=== PATIENT | female | born 1965 | race Caucasian/White ===

== ENCOUNTER 2016-10-27 18:52 | Emergency (ER) | payer OTHER ==
[2016-10-27] MEDS ORDERED: Morphine 4 MG/ML Syringe IVPUSH ONE (19:05)
[2016-10-27] MEDS ORDERED: Ketorolac 30 MG/ML SDV IVPUSH ONE (19:06)
[2016-10-27] MEDS ORDERED: Sodium Chloride 0.9% 1,000 ML IV SCH (19:15)
--- NOTE | 2016-10-27 19:20 | EDM.PDOC ---
ED HPI GENERAL MEDICAL PROBLEM - General Chief Complaint: Chest Pain Stated Complaint: CHEST PAIN Time Seen by Provider: 10/27/16 19:00 Source of Information: Reports: Patient, Old Records History Limitations: Reports: No Limitations - History of Present Illness INITIAL COMMENTS - FREE TEXT/NARRATIVE: 51 yo female here with pleuritic left sided chest pain that began while doing crunches at [facility]. Has no hx of coronary dz. Does have a hx of a 4.3 cm thoracic ascending aortic aneurysm as a result of a congenital bicuspid aortic valve. Has never had pain like this before. No recent calf pain, cough or fever. Had some pain to the left shoulder transiently. Had also some numbness down the left arm. No nausea, diaphoresis, or SOB. Onset: Today Onset Date: 10/27/16 Onset Time: 18:25 Duration: Minutes: Location: Reports: Chest Quality: Reports: Sharp, Stabbing Severity: Moderate (6/10) Improves with: Reports: Rest, Other (shallow breathing) Worsens with: Reports: Breathing (joshua deep breathing.) Context: Reports: Other (thoracic ascending aortic aneurysm) Associated Symptoms: Reports: Chest Pain. Denies: Diaphoresis, Fever/Chills, Nausea/Vomiting, Shortness of Breath Treatments GARBAGE PICK UP MAN: Reports: Other (see below) (None) Left Chest Pain Score (Numeric/FACES): 8 - Related Data Allergies Allergy/AdvReac Type Severity Reaction Status Date / Time No Known Allergies Allergy Verified 10/27/16 19:15 Home Meds: Home Meds Calcium Carbonate/Vitamin D3 [Calcium 600 + Vit D 400] 1 each PO DAILY 02/15/13 [History] Cholecalciferol (Vitamin D3) [Vitamin D3] 2,000 unit PO DAILY 02/15/13 [History] Gluc Brock Dipo Ch/Efra Brock/C/Attila [Glucosamine Chondroitin Caplet] 1 each PO BID [History] Krill Oil 500 mg PO BID 02/15/13 [History] Lysine [l-Lysine] 500 mg PO DAILY 02/15/13 [History] Multivitamin [Multi Vitamin Daily] 1 each PO DAILY 02/15/13 [History] Ranitidine HCl [Ranitidine] 150 mg PO BID 02/15/13 [History] Vitamin B Complex 1 each PO DAILY 02/15/13 [History] Metoprolol Succinate [Toprol XL] 0.5 tab PO BID 10/30/15 [History] Ubidecarenone [Coq10] 1 tab PO ASDIRECTED 10/30/15 [History] Past Medical History Cardiovascular History: Reports: Other (See Below) Other Cardiovascular History: States she has an aneurysm on ascending aorta, 4.3 cm. Also states she has a bicuspid valve rather a tricuspid valve. States her high cholesterol has improved with her recent weight loss. Gastrointestinal History: Reports: Hiatal Hernia HOME SPECIALIST History: Reports: Social & Family History - Tobacco Use Smoking Status *Q: Never Smoker ED ROS GENERAL - Review of Systems Review Of Systems: See Below Constitutional: Reports: No Symptoms HEENT: Reports: No Symptoms Respiratory: Reports: Shortness of Breath, Pleuritic Chest Pain. Denies: Wheezing, Cough, Sputum, Hemoptysis Cardiovascular: Reports: Chest Pain. Denies: Dyspnea on Exertion, Edema, Lightheadedness, Palpitations GI/Abdominal: Reports: No Symptoms : Reports: No Symptoms Musculoskeletal: Reports: No Symptoms Skin: Reports: No Symptoms Neurological: Reports: Numbness (mild left arm, improving.) Psychiatric: Reports: Anxiety ED EXAM, GENERAL - Physical Exam Exam: See Below Exam Limited By: No Limitations General Appearance: Alert, WD/WN, No Apparent Distress, Anxious Eye Exam: Bilateral Eye: Normal Inspection, PERRL Ears: Normal External Exam, Normal Canal, Hearing Grossly Normal, Normal TMs Ear Exam: Bilateral Ear: Auricle Normal, Canal Normal Nose: Normal Inspection, Normal Mucosa, No Blood Throat/Mouth: Normal Inspection, Normal Lips, Normal Teeth, Normal Gums, Normal Oropharynx, Normal Voice, No Airway Compromise Head: Atraumatic, Normocephalic Neck: Normal Inspection Respiratory/Chest: No Respiratory Distress, Lungs Clear, Normal Breath Sounds, No Accessory Muscle Use, Chest Non-Tender Cardiovascular: Regular Rate, Rhythm, No Edema. No: Bradycardia, Tachycardia GI/Abdominal: Normal Bowel Sounds, Soft, Non-Tender, No Organomegaly, No Distention Back Exam: Normal Inspection. No: CVA Tenderness (R), CVA Tenderness (L) Extremities: Normal Inspection, Normal Range of Motion, Non-Tender, No Pedal Edema Neurological: Alert, Oriented, CN II-XII Intact, Normal Cognition, Normal Gait, No Motor/Sensory Deficits Psychiatric: Normal Affect, Normal Mood Skin Exam: Warm, Dry, Intact, Normal Color, No Rash Lymphatic: No Adenopathy EKG INTERPRETATION EKG Date: 10/27/16 Time: 19:00 Rhythm: NSR Rate (Beats/Min): 78 [place]: Normal P-Wave: Present QRS: Normal ST-T: Normal QT: Normal Comparison: No Change Course - Vital Signs Text/Narrative:: NS IV @ 100 ml/h, Toradol 30 mg IV, [place] 2 po, ASA 324 mg po-improved, not gone CXR-negative, no sign of enlarging aneurysm. Last Recorded V/S: Last Vital Signs Temp 36.8 C 10/27/16 19:39 Pulse 60 10/27/16 20:46 Resp 15 10/27/16 20:46 BP 107/81 10/27/16 20:46 Pulse Ox 99 10/27/16 20:46 - Orders/Labs/Meds Orders: Active Orders 24 hr Category Date Time Status EKG Documentation Completion [RC] ASDIRECTED Care 10/27/16 18:53 Active Chest 2V [CR] Stat Exams 10/27/16 19:07 Ordered Sodium Chloride 0.9% [Normal Saline] 1,000 ml Med 10/27/16 19:15 Active IV ASDIRECTED EKG 12 Lead [EK] Routine Ther 10/27/16 18:53 Ordered Medication Orders Sodium Chloride (Normal Saline) 1,000 mls @ 100 mls/hr IV ASDIRECTED BILL Last Admin: 10/27/16 19:29 Dose: 100 mls/hr Labs: Laboratory Tests 10/27/16 10/27/16 10/27/16 Range/Units 19:10 19:10 19:10 WBC 8.5 (4.5-12.0) X10-3/uL RBC 4.87 (3.23-5.20) x10(6)uL Hgb 15.1 (11.5-15.5) g/dL Hct 43.8 (30.0-51.3) % MCV 90.0 (80-96) fL MCH 31.0 (27.7-33.6) pg MCHC 34.5 (32.2-35.4) g/dL RDW 11.9 (11.5-15.5) % Plt Count 198 (125-369) X10(3)uL D-Dimer, Quantitative 101 (100-400) ng/mL Sodium 139 (135-145) mmol/L Potassium 3.6 (3.5-5.3) mmol/L Chloride 106 (100-110) mmol/L Carbon Dioxide 24 (23-29) mmol/L BUN 13 (5-20) mg/dL Creatinine 0.8 (0.6-1.3) mg/dL Est Cr Clr Drug Dosing TNP Estimated GFR (MDRD) > 60 (>60) BUN/Creatinine Ratio 16.3 (9-20) Glucose 120 H (80-116) mg/dL Calcium 9.6 (8.6-10.2) mg/dL Troponin I (0.02-0.06) NG/ML 10/27/16 Range/Units 19:10 WBC (4.5-12.0) X10-3/uL RBC (3.23-5.20) x10(6)uL Hgb (11.5-15.5) g/dL Hct (30.0-51.3) % MCV (80-96) fL MCH (27.7-33.6) pg MCHC (32.2-35.4) g/dL RDW (11.5-15.5) % Plt Count (125-369) X10(3)uL D-Dimer, Quantitative (100-400) ng/mL Sodium (135-145) mmol/L Potassium (3.5-5.3) mmol/L Chloride (100-110) mmol/L Carbon Dioxide (23-29) mmol/L BUN (5-20) mg/dL Creatinine (0.6-1.3) mg/dL Est Cr Clr Drug Dosing Estimated GFR (MDRD) (>60) BUN/Creatinine Ratio (9-20) Glucose (80-116) mg/dL Calcium (8.6-10.2) mg/dL Troponin I < 0.01 L (0.02-0.06) NG/ML Meds: Medications Generic Name Dose Route Start Last Admin Trade Name Freq PRN Reason Stop Dose Admin Sodium Chloride 1,000 mls @ 100 mls/hr 10/27/16 19:15 10/27/16 19:29 Normal Saline IV 100 mls/hr ASDIRECTED BILL Administration Discontinued Medications Generic Name Dose Route Start Last Admin Trade Name Freq PRN Reason Stop Dose Admin Hydrocodone Bitart/Acetaminophen 2 tab 10/27/16 20:26 10/27/16 20:34 [place] 325-5 Mg PO 10/27/16 20:27 2 tab ONETIME ONE Administration Aspirin 324 mg 10/27/16 20:52 10/27/16 21:00 Aspirin PO 10/27/16 20:53 Not Given ONETIME ONE Aspirin 324 mg 10/27/16 20:58 10/27/16 21:00 Aspirin PO 10/27/16 20:59 324 mg ONETIME ONE Administration Ketorolac Tromethamine 30 mg 10/27/16 19:06 10/27/16 19:16 Toradol IVPUSH 10/27/16 19:07 30 mg ONETIME ONE Administration Morphine Sulfate 4 mg 10/27/16 19:05 10/27/16 20:02 Morphine IVPUSH 10/27/16 19:06 4 mg ONETIME ONE Administration Departure - Departure Time of Disposition: 21:25 Disposition: Home, Self-Care 01 Condition: Good Clinical Impression: Pleurisy - My Orders Last 24 Hours: My Active Orders 10/27/16 18:53 EKG Documentation Completion [RC] ASDIRECTED EKG 12 Lead [EK] Routine 10/27/16 19:07 Chest 2V [CR] Stat 10/27/16 19:15 Sodium Chloride 0.9% [Normal Saline] 1,000 ml IV ASDIRECTED - Assessment/Plan Last 24 Hours: My Active Orders 10/27/16 18:53 EKG Documentation Completion [RC] ASDIRECTED EKG 12 Lead [EK] Routine 10/27/16 19:07 Chest 2V [CR] Stat 10/27/16 19:15 Sodium Chloride 0.9% [Normal Saline] 1,000 ml IV ASDIRECTED
[2016-10-27] MEDS ORDERED: Acetaminophen/HYDROcodone 325-5 MG Tab PO ONE ×2 (20:26→21:19)
[2016-10-27] MEDS ORDERED: Aspirin 81 MG Tab.Chew PO ONE (20:52)
[2016-10-27] MEDS: Aspirin 81 MG Tab.Chew PO ONE ×2 (20:58→21:00)
[2016-10-27 21:35] VITALS: BP 115/63
--- NOTE | 2016-10-28 09:26 | CR ---
INDICATION: Chest pain. CHEST, PA AND LATERAL VIEWS: FINDINGS: There is an earlier chest x-ray of 02/25/2013. I see no interval change. The lungs and pleural space are clear. The cardiac and mediastinal contours are stable in configuration. There is no CHF. The patient is of larger body habitus. There is mild scoliosis deformity of thoracic spine curved convex to the right. There is some generalized degenerative change throughout the thoracic spine. There are mild compression deformities in mid thoracic spine, though these look chronic. IMPRESSION: No acute abnormalities shown. MTDD
== END 2016-10-27 21:30 | disposition home or self-care (01) ==
LOC: FB.ED 18:52
DX: R09.1 Pleurisy (principal); Q23.1 Congenital insufficiency of aortic valve; E78.00 Pure hypercholesterolemia, unspecified; Z79.899 Other long term (current) drug therapy; Z98.890 Other specified postprocedural states
CPT/HCPCS: 36415; 71020; 80048; 84484; 85027; 85379; 93005; 96361; 96374; 96375; 99285; A9270; J1885; J2270; J7040

== ENCOUNTER 2018-07-08 07:51 | Day surgery (SDC) | payer OTHER ==
[~2018-07-08 07:51] MED LIST: Lactated Ringers 1,000 ML IV SCH
[2018-07-08] MEDS ORDERED: Lidocaine 2% 100 MG/5 ML Syringe IVPUSH ONE (07:52)
[2018-07-08] MEDS ORDERED: Propofol 200 MG/20 ML SDV IV ONE (07:52)
--- NOTE | 2018-07-08 09:27 | PCM.OPNOTE ---
- General Post-Op/Procedure Note Date of Surgery/Procedure: 07/08/18 Operative Procedure(s): egd with bx Findings: gastritis irregular z line Pre Op Diagnosis: ruq abd pain Post-Op Diagnosis: gastritis. irregular z line Anesthesia Technique: MAC Primary Surgeon: Quinn Irwin Anesthesia Provider: Faheem New Pathology: stomach and esophagus Complications: None Condition: Good Free Text/Narrative:: see dictation
[2018-07-08 11:13] VITALS: BP 112/72
--- NOTE | 2018-07-12 01:23 | OR ---
DATE OF OPERATION: 07/11/2018 SURGEON: Quinn Irwin MD PROCEDURE PERFORMED: Upper endoscopy with cold forceps biopsy. PREOPERATIVE DIAGNOSIS: Right upper quadrant abdominal pain. POSTOPERATIVE DIAGNOSES: Gastritis and irregular Z-line. INDICATIONS FOR PROCEDURE: This is a 53-year-old white female who has had persistent abdominal pain since before her laparoscopic cholecystectomy. She was offered and accepted an EGD as part of the workup for her continued abdominal discomfort DESCRIPTION OF OPERATION: After an excellent IV sedation was administered, the bite block was inserted. The flexible endoscope was passed without difficulty down the patient's esophagus into the stomach. Stomach was insufflated. Scope was passed through the pylorus to second portion of duodenum and slowly withdrawn. The following findings were noted, duodenum was unremarkable. Stomach demonstrated diffuse gastritis with friable mucosa. Biopsies were taken. The Z-line was noted to be irregular, and while there was no evidence of esophagitis, circumferential biopsies were taken as well to rule out intestinal metaplasia. The remainder of the esophageal exam was unremarkable. Stomach was deflated, scope was removed. The patient tolerated the procedure well. /[id number] /MODL
== END 2018-07-08 11:09 | disposition home or self-care (01) ==
LOC: FB.SDS 07:51
PROVIDERS: ATTEND Surgery
DX: K29.50 Unspecified chronic gastritis without bleeding (principal); K20.9 Esophagitis, unspecified; E78.2 Mixed hyperlipidemia; Z79.899 Other long term (current) drug therapy
CPT/HCPCS: 88305; 88313; 88342; J2001; J2704; J7120

== ENCOUNTER 2018-07-08 21:32 | Emergency (ER) | payer OTHER ==
[2018-07-08] MEDS ORDERED: Sodium Chloride 0.9% 1,000 ML IV ONE (21:35)
[2018-07-08] MEDS ORDERED: Ketorolac 30 MG/ML SDV IVPUSH ONE (21:35)
[2018-07-08] MEDS ORDERED: Ondansetron 4 MG/2 ML SDV IVPUSH ONE (22:33)
[2018-07-08] MEDS ORDERED: Alum Hydroxide/Mag Hydroxide 30 ML, Lidocaine 2% 15 ML PO ONE ×2 (22:34)
--- NOTE | 2018-07-08 22:41 | EDM.PDOC ---
ED HPI GENERAL MEDICAL PROBLEM - General Chief Complaint: Abdominal Pain Stated Complaint: UPPER R QUADRANT PAIN Time Seen by Provider: 07/08/18 21:50 Source of Information: Reports: Patient, Family History Limitations: Reports: No Limitations - History of Present Illness INITIAL COMMENTS - FREE TEXT/NARRATIVE: c/o RUQ and R flank pain x 2w, worse today pt had EGD this AM with Dr Irwin, did not have duodenal ulcer, did have dx gastritis, pt does not know how extensive, pt on ranitidine, Dr Irwin added pantoprazole and sucralfate pt ate crab salad for lunch and chicken soup for supper has had inc'd pain this pain evening, called the ED and said she was very uncomfortable, thought it was her GB althangelina had a choly 02/[address] Irwin for similar sxs says she passed a gallstone 2y ago after severe RUQ pain, then no pain until several wks this fall prior to choly, then was fine until 2w ago pt says she could not get comfortable today, rolling in bed, was sob on phone from pain no help from Toradol, will give GI cocktail actually tender in epigastrium altho pt localizes pain to RUQ and R flank where she is not tender states she has had a dilated CBD in past on u/s altho subsequent MRI was neg pt worried that she may have a stone in her 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 Pain Score (Numeric/FACES): 8 - Related Data Allergies Allergy/AdvReac Type Severity Reaction Status Date / Time No Known Allergies Allergy Verified 07/08/18 21:42 Home Meds: Home Meds Cholecalciferol (Vitamin D3) [Vitamin D3] 1,000 unit PO DAILY 02/15/13 [History] Gluc Brock Dipo Ch/Efra Brock/C/Attila [Glucosamine Chondroitin Caplet] 1 each PO BID [History] Krill Oil 500 mg PO DAILY 02/15/13 [History] Lysine [l-Lysine] 500 mg PO DAILY 02/15/13 [History] Multivitamin [Multi-Vitamin Daily] 0.5 tab PO BID 02/15/13 [History] Ranitidine HCl [Ranitidine] 150 mg PO BID 02/15/13 [History] Vitamin B Complex 1 each PO DAILY 02/15/13 [History] Metoprolol Succinate [Toprol XL] 12.5 mg PO BID 10/30/15 [History] Calcium Polycarbophil [Fibercon] 1,250 mg PO BID PRN 03/24/18 [History] Triamcinolone Acetonide [Kenalog 0.1% Crm] 1 applic TOP BID PRN 03/24/18 [ History] Ubidecarenone [Co Q-10] 1 cap PO DAILY 07/07/18 [History] Pantoprazole Sodium 40 mg PO DAILY #30 tablet. 07/08/18 [Rx] Sucralfate [Carafate] 1 gm PO QIDACANDBED #120 tablet 07/08/18 [Rx] Past Medical History HEENT History: Reports: Impaired Vision Cardiovascular History: Reports: Aneurysm, High Cholesterol, SOB on Exertion, Other (See Below) Other Cardiovascular History: BICUSPID AORTIC VALVE; IDOPATHIC MEDIAL AORTOPATHY AND ARTERIOPATHY; PALPITATION Other Respiratory History: DYSPNEA WITH EXERTION. DENIES USE OF INHALER. 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: Other RETAIL FIELD REPRESENTATIVE History: II PAR II Musculoskeletal History: Reports: Fracture Other Musculoskeletal History: PAIN IN LIMB, hx fx R femur Neurological History: Reports: Migraines Psychiatric History: Reports: Anxiety Endocrine/Metabolic History: Reports: Obesity/BMI 30+ Hematologic History: Reports: None Immunologic History: Reports: None Oncologic (Cancer) History: Reports: Cervix Dermatologic History: Reports: Eczema - Infectious Disease History Infectious Disease History: Reports: Chicken Pox - Past Surgical History Head Surgeries/Procedures: Reports: None HEENT Surgical History: Reports: Adenoidectomy, Oral Surgery Cardiovascular Surgical History: Reports: None GI Surgical History: Reports: Cholecystectomy, Colonoscopy, EGD Female Surgical History: Reports: Section, Hysterectomy Other Female Surgeries/Procedures: CS x 2 Endocrine Surgical History: Reports: None Neurological Surgical History: Reports: None Musculoskeletal Surgical History: Reports: Other (See Below) Other Musculoskeletal Surgeries/Procedures:: RIGHT FEMUR FRACTURE SURGERY Social & Family History - Family History Family Medical History: Noncontributory - Tobacco Use Smoking Status *Q: Former Smoker Years of Tobacco use: 3 Used Tobacco, but Quit: Yes Month/Year Tobacco Last Used: 1989 - Caffeine Use Caffeine Use: Reports: Coffee - Alcohol Use Days Per Week of Alcohol Use: 2 Number of Drinks Per Day: 3 Total Drinks Per Week: 6 - Recreational Drug Use Recreational Drug Use: No ED ROS GENERAL - Review of Systems Review Of Systems: See Below Constitutional: Reports: No Symptoms, Other (states she has been drinking fluids ). Denies: Fever, Chills, Malaise HEENT: Reports: No Symptoms Respiratory: Reports: No Symptoms Cardiovascular: Reports: No Symptoms Endocrine: Reports: No Symptoms GI/Abdominal: Reports: Abdominal Pain, Nausea, Other (slight N, no V). Denies: Vomiting : Reports: No Symptoms Musculoskeletal: Reports: No Symptoms Skin: Reports: No Symptoms Neurological: Reports: No Symptoms Psychiatric: Reports: No Symptoms Hematologic/Lymphatic: Reports: No Symptoms Immunologic: Reports: No Symptoms ED EXAM, GI/ABD - Physical Exam Exam: See Below Exam Limited By: No Limitations General Appearance: Alert, WD/WN, Mild Distress, Other (mildly uncomfortable, lying still, changes position and walks without difficulty) Ears: Normal External Exam, Normal Canal, Hearing Grossly Normal Nose: Normal Inspection, Normal Mucosa, No Blood Throat/Mouth: Normal Inspection, Normal Lips, Normal Teeth, Normal Gums, Normal Oropharynx, Normal Voice, No Airway Compromise Head: Atraumatic, Normocephalic Neck: Normal Inspection, Supple, Non-Tender, Full Range of Motion Respiratory/Chest: No Respiratory Distress, Lungs Clear, Normal Breath Sounds, No Accessory Muscle Use, Chest Non-Tender Cardiovascular: Regular Rate, Rhythm, No Edema, No Gallop, No JVD, No Murmur, No Rub GI/Abdominal Exam: Normal Bowel Sounds, Soft, No Organomegaly, No Distention, No Mass, Other (nl BS x 4, very soft, 1+ tender epigastrium only, NT elsewhere including flanks) Back Exam: Normal Inspection, Full Range of Motion, NT Extremities: Normal Inspection, Normal Range of Motion, Non-Tender, No Pedal Edema Neurological: Alert, Oriented, CN II-XII Intact, Normal Cognition, No Motor/ Sensory Deficits Psychiatric: Normal Affect, Normal Mood Skin Exam: Warm, Dry, Intact, Normal Color, No Rash Lymphatic: No Adenopathy Course - Vital Signs Last Recorded V/S: Last Vital Signs Temp 36.6 C 07/08/18 21:35 Pulse 56 L 07/08/18 21:35 Resp 18 07/08/18 21:35 BP 149/94 H 07/08/18 21:35 Pulse Ox 100 07/08/18 21:35 - Orders/Labs/Meds Labs: Laboratory Tests 07/08/18 07/08/18 07/08/18 Range/Units 21:25 21:25 22:00 WBC Cancelled Corrected WBC Cancelled RBC Cancelled Hgb Cancelled Hct Cancelled MCV Cancelled MCH Cancelled MCHC Cancelled RDW Cancelled Plt Count Cancelled MPV Cancelled Neut % (Auto) Cancelled Lymph % (Auto) Cancelled [place] % (Auto) Cancelled Eos % (Auto) Cancelled Baso % (Auto) Cancelled Neut # (Auto) Cancelled Lymph # (Auto) Cancelled [place] # (Auto) Cancelled Eos # (Auto) Cancelled Baso # (Auto) Cancelled Add Manual Diff Cancelled Sodium Cancelled Potassium Cancelled Chloride Cancelled Carbon Dioxide Cancelled Anion Gap Cancelled BUN Cancelled Creatinine Cancelled Est Cr Clr Drug Dosing Cancelled Estimated GFR (MDRD) Cancelled BUN/Creatinine Ratio Cancelled Glucose Cancelled Calcium Cancelled Total Bilirubin Cancelled AST Cancelled ALT Cancelled Alkaline Phosphatase Cancelled Troponin I < 0.017 L (<0.017-0.056) ng/mL C-Reactive Protein < 0.2 L (0.5-0.9) mg/dL Total Protein Cancelled Albumin Cancelled Globulin Cancelled Albumin/Globulin Ratio Cancelled Amylase (25-115) U/L Urine Color (YELLOW) Urine Appearance (CLEAR) Urine pH (5.0-6.5) Ur Specific [place] (1.010-1.025) Urine Protein (NEGATIVE) mg/dL Urine Glucose (UA) (NEGATIVE) mg/dL Urine Ketones (NEGATIVE) mg/dL Urine Occult Blood (NEGATIVE) Urine Nitrite (NEGATIVE) Urine Bilirubin (NEGATIVE) Urine Urobilinogen (NEGATIVE) mg/dL Ur Leukocyte Esterase (NEGATIVE) Urine RBC (0) Urine WBC (0) Ur Epithelial Cells Urine Bacteria (NS) 07/08/18 07/08/18 07/08/18 Range/Units 22:00 22:00 22:00 WBC 9.5 Corrected WBC RBC 4.66 Hgb 14.8 Hct 41.8 MCV 89.7 MCH 31.8 MCHC 35.4 RDW 11.8 Plt Count 193 MPV 9.1 Neut % (Auto) 66.4 Lymph % (Auto) 25.4 [place] % (Auto) 4.9 Eos % (Auto) 3 Baso % (Auto) 0 Neut # (Auto) 6.3 Lymph # (Auto) 2.4 [place] # (Auto) 0.5 Eos # (Auto) 0.3 Baso # (Auto) 0.0 Add Manual Diff Sodium 140 Potassium 4.0 Chloride 105 Carbon Dioxide 26 Anion Gap BUN 10 Creatinine 0.8 Est Cr Clr Drug Dosing 74.86 Estimated GFR (MDRD) > 60 BUN/Creatinine Ratio 12.5 Glucose 104 Calcium 9.3 Total Bilirubin 0.3 AST 15 ALT 25 Alkaline Phosphatase 65 Troponin I (<0.017-0.056) ng/mL C-Reactive Protein (0.5-0.9) mg/dL Total Protein 7.0 Albumin 3.7 Globulin 3.3 Albumin/Globulin Ratio 1.1 Amylase 64 (25-115) U/L Urine Color (YELLOW) Urine Appearance (CLEAR) Urine pH (5.0-6.5) Ur Specific [place] (1.010-1.025) Urine Protein (NEGATIVE) mg/dL Urine Glucose (UA) (NEGATIVE) mg/dL Urine Ketones (NEGATIVE) mg/dL Urine Occult Blood (NEGATIVE) Urine Nitrite (NEGATIVE) Urine Bilirubin (NEGATIVE) Urine Urobilinogen (NEGATIVE) mg/dL Ur Leukocyte Esterase (NEGATIVE) Urine RBC (0) Urine WBC (0) Ur Epithelial Cells Urine Bacteria (NS) 07/08/18 Range/Units 23:35 WBC Corrected WBC RBC Hgb Hct MCV MCH MCHC RDW Plt Count MPV Neut % (Auto) Lymph % (Auto) [place] % (Auto) Eos % (Auto) Baso % (Auto) Neut # (Auto) Lymph # (Auto) [place] # (Auto) Eos # (Auto) Baso # (Auto) Add Manual Diff Sodium Potassium Chloride Carbon Dioxide Anion Gap BUN Creatinine Est Cr Clr Drug Dosing Estimated GFR (MDRD) BUN/Creatinine Ratio Glucose Calcium Total Bilirubin AST ALT Alkaline Phosphatase Troponin I (<0.017-0.056) ng/mL C-Reactive Protein (0.5-0.9) mg/dL Total Protein Albumin Globulin Albumin/Globulin Ratio Amylase (25-115) U/L Urine Color Yellow (YELLOW) Urine Appearance Clear (CLEAR) Urine pH 7.0 H (5.0-6.5) Ur Specific [place] 1.005 L (1.010-1.025) Urine Protein Negative (NEGATIVE) mg/dL Urine Glucose (UA) Normal (NEGATIVE) mg/dL Urine Ketones Negative (NEGATIVE) mg/dL Urine Occult Blood Negative (NEGATIVE) Urine Nitrite Negative (NEGATIVE) Urine Bilirubin Negative (NEGATIVE) Urine Urobilinogen Normal (NEGATIVE) mg/dL Ur Leukocyte Esterase Negative (NEGATIVE) Urine RBC 0-5 (0) Urine WBC 0-5 (0) Ur Epithelial Cells Occasional Urine Bacteria Rare H (NS) Meds: Medications Discontinued Medications Generic Name Dose Route Start Last Admin Trade Name Freq PRN Reason Stop Dose Admin Al Hydroxide/Mg Hydroxide 30 0 ml 07/08/18 22:34 07/08/18 23:51 ml/ Lidocaine HCl 15 ml PO 07/08/18 22:35 15 ml ONETIME ONE Administration Sodium Chloride 1,000 mls @ 999 mls/hr 07/08/18 21:35 07/08/18 22:05 Normal Saline IV 07/08/18 22:35 999 mls/hr .BOLUS ONE Administration Ketorolac Tromethamine 30 mg 07/08/18 21:35 07/08/18 22:05 Toradol IVPUSH 07/08/18 21:36 30 mg ONETIME ONE Administration Ondansetron HCl 4 mg 07/08/18 22:33 07/08/18 23:52 Zofran IVPUSH 07/08/18 22:34 4 mg ONETIME ONE Administration - Re-Assessments/Exams Free Text/Narrative Re-Assessment/Exam: 07/09/18 00:27 labs neg, no clinical concern for gallstone pt with less pain and less tenderness after GI cocktail, pt agrees to continue current meds and to add antacids 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 In addition, take a liquid antacid 30 ml 1-2 hours after meals and bedtime for the next 5 days, then every 4 hours as needed. Rest today. No work. See Dr Irwin next week. Return to ED if you are feeling worse.
[2018-07-09 03:48] VITALS: BP 123/92
== END 2018-07-09 00:48 | disposition home or self-care (01) ==
LOC: FB.ED 21:32
DX: K29.70 Gastritis, unspecified, without bleeding (principal); F41.9 Anxiety disorder, unspecified; Z79.899 Other long term (current) drug therapy; Z87.891 Personal history of nicotine dependence
CPT/HCPCS: 36415; 80053; 81001; 82150; 84484; 85025; 86140; 96361; 96374; 96375; 99284; A9270; J1885; J2405; J7030

== ENCOUNTER 2018-07-13 19:46 | Emergency (ER) | payer OTHER ==
[2018-07-13] MEDS ORDERED: Sodium Chloride 0.9% 1,000 ML IV ONE ×2 (19:57→21:35)
[2018-07-13] MEDS ORDERED: Ondansetron 4 MG/2 ML SDV IVPUSH ONE (19:57)
[2018-07-13] MEDS ORDERED: Pantoprazole 40 MG Vial IVPUSH ONE (19:57)
[2018-07-13] MEDS ORDERED: Ketorolac 30 MG/ML SDV IVPUSH ONE (20:00)
--- NOTE | 2018-07-13 20:03 | EDM.PDOC ---
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 She had a Upper GI on 07/08/2018 and was dx'd with gastritis. Her pain got worse and she came to te ED same day at pm. Toradol and a GI cocktail were given, which helped her pain to improve. Today, she was eating some Welsh fries, which made her nauseated with vomiting. She requested a prescription for Viscous lidocaine in order to make her own GI cocktail at home , which i agreed on. 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 Initially she refuse any pain meds, later on agreed for Toradol, Zofran and Protonix, which helped her pain on 07/08/2018. Pt denied trauma. No C/P, no diaphoresis, no other acute med. issues. BP 142/85 RR 18 Pulse ox 100% on RA Temp 36.8 pulse 66 Onset Date: 07/08/18 Onset Time: 06:00 Duration: Hour(s):, Day(s):, Getting Worse, Intermittent Location: Reports: Abdomen (RUQ of abdomen.) Quality: Reports: Ache, Burning, Dull, Pressure, Throbbing Severity: Severe Improves with: Reports: None Worsens with: Reports: None Context: Reports: Other - Related Data Allergies Allergy/AdvReac Type Severity Reaction Status Date / Time No Known Allergies Allergy Verified 07/13/18 22:02 Home Meds: Home Meds Cholecalciferol (Vitamin D3) [Vitamin D3] 1,000 unit PO DAILY 02/15/13 [History] Gluc Brock Dipo Ch/Efra Brock/C/Attila [Glucosamine Chondroitin Caplet] 1 each PO BID [History] Krill Oil 500 mg PO DAILY 02/15/13 [History] Lysine [l-Lysine] 500 mg PO DAILY 02/15/13 [History] Multivitamin [Multi-Vitamin Daily] 0.5 tab PO BID 02/15/13 [History] Ranitidine HCl [Ranitidine] 150 mg PO BID 02/15/13 [History] Vitamin B Complex 1 each PO DAILY 02/15/13 [History] Metoprolol Succinate [Toprol XL] 12.5 mg PO BID 10/30/15 [History] Calcium Polycarbophil [Fibercon] 1,250 mg PO BID PRN 03/24/18 [History] Triamcinolone Acetonide [Kenalog 0.1% Crm] 1 applic TOP BID PRN 03/24/18 [ History] Ubidecarenone [Co Q-10] 1 cap PO DAILY 07/07/18 [History] Pantoprazole Sodium 40 mg PO DAILY #30 tablet. 07/08/18 [Rx] Sucralfate [Carafate] 1 gm PO QIDACANDBED #120 tablet 07/08/18 [Rx] Past Medical History HEENT History: Reports: Impaired Vision Cardiovascular History: Reports: Aneurysm, High Cholesterol, SOB on Exertion, Other (See Below) Other Cardiovascular History: BICUSPID AORTIC VALVE; IDOPATHIC MEDIAL AORTOPATHY AND ARTERIOPATHY; PALPITATION Other Respiratory History: DYSPNEA WITH EXERTION. DENIES USE OF INHALER. Gastrointestinal History: Reports: Cholelithiasis, Gastritis, Other (See Below) Other Gastrointestinal History: RECURRENT BILLIARY COLIC Genitourinary History: Reports: None [employer] History: Reports: Other [employer] History: II PAR II Musculoskeletal History: Reports: Fracture Other Musculoskeletal History: PAIN IN LIMB, hx fx R femur Neurological History: Reports: Migraines Psychiatric History: Reports: Anxiety Endocrine/Metabolic History: Reports: Obesity/BMI 30+ Hematologic History: Reports: None Immunologic History: Reports: None Oncologic (Cancer) History: Reports: Cervix Dermatologic History: Reports: Eczema - Infectious Disease History Infectious Disease History: Reports: Chicken Pox - Past Surgical History Head Surgeries/Procedures: Reports: None HEENT Surgical History: Reports: Adenoidectomy, Oral Surgery Cardiovascular Surgical History: Reports: None GI Surgical History: Reports: Cholecystectomy, Colonoscopy, EGD Female Surgical History: Reports: Section, Hysterectomy Other Female Surgeries/Procedures: CS x 2 Endocrine Surgical History: Reports: None Neurological Surgical History: Reports: None Musculoskeletal Surgical History: Reports: Other (See Below) Other Musculoskeletal Surgeries/Procedures:: RIGHT FEMUR FRACTURE SURGERY Social & Family History - Family History Family Medical History: Noncontributory - Caffeine Use Caffeine Use: Reports: Coffee ED ROS GENERAL - Review of Systems Review Of Systems: See Below Constitutional: Reports: No Symptoms HEENT: Reports: No Symptoms Respiratory: Reports: No Symptoms Cardiovascular: Reports: No Symptoms Endocrine: Reports: No Symptoms GI/Abdominal: Reports: Abdominal Pain (RUQ of abdomen) : Reports: No Symptoms Musculoskeletal: Reports: No Symptoms Skin: Reports: No Symptoms Neurological: Reports: No Symptoms Psychiatric: Reports: No Symptoms Hematologic/Lymphatic: Reports: No Symptoms Immunologic: Reports: No Symptoms ED EXAM, GI/ABD - Physical Exam Exam: See Below Exam Limited By: No Limitations General Appearance: Alert, WD/WN, Moderate Distress Eyes: Bilateral: Normal Appearance Ears: Normal External Exam Nose: Normal Inspection Throat/Mouth: Normal Lips, Normal Teeth, Normal Voice, No Airway Compromise Head: Atraumatic, Normocephalic Neck: Normal Inspection, Supple, Non-Tender, Full Range of Motion Respiratory/Chest: No Respiratory Distress, Lungs Clear, Normal Breath Sounds, Chest Non-Tender Cardiovascular: Normal Peripheral Pulses, Regular Rate, Rhythm, No Edema, No Gallop, No Murmur, No Rub GI/Abdominal Exam: Guarding, Rigid, Rebound, Tender (RUQ of abdomen) (Female) Exam: Deferred Rectal (Female) Exam: Deferred Back Exam: Normal Inspection, Full Range of Motion Extremities: Normal Inspection Neurological: Alert, Oriented, CN II-XII Intact, Normal Cognition, Normal Gait Psychiatric: Normal Affect, Normal Mood Skin Exam: Warm, Dry, Intact, Normal Color, No Rash Lymphatic: No Adenopathy EKG INTERPRETATION EKG Date: 07/13/18 Time: 20:40 Rhythm: NSR Rate (Beats/Min): 60 [place]: Normal P-Wave: Present QRS: Normal ST-T: Normal QT: Normal Comparison: NA - No Prior EKG Course - Vital Signs Text/Narrative:: 53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 She had a Upper GI on 07/08/2018 and was dx'd with gastritis. Her pain got worse and she came to te ED same day at pm. Toradol and a GI cocktail were given, which helped her pain to improve. Today, she was eating some Welsh fries, which made her nauseated with vomiting. She requested a prescription for Viscous lidocaine in order to make her own GI cocktail at home , which i agreed on. 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 Initially she refuse any pain meds, later on agreed for Toradol, Zofran and Protonix, which helped her pain on 07/08/2018. Pt denied trauma. No C/P, no diaphoresis, no other acute med. issues. BP 142/85 RR 18 Pulse ox 100% on RA Temp 36.8 pulse 66 PE: WNWD W F with N/V and severe RUQ abd. pain. Refused CT abd/pelvis Labs: CBC Nl HGB was 16.6 AST/ALT 665/385 Alk phose 116, UA neg Imaging: CT abd/pelvis: Obstructed extrahepatic duct due to Localized inflammation or Cholangiocarcinoma . ERCP was recommended, EKG: NSR no acute ST/T wave changes Impression: S/P cholecystectomy, acute elevation of liver enzymes, focal extrahepatic ductal stenosis Tx: Zofran, Protonix, NS, Toradol, Dilaudid and Morphin Mar 20 2018: US positive for dilatation of common bile duct, as per Pt's HPI Mar 25 Cholecystectomy July 08: U Upper GI: Dx'd with Gastritis, MRCP abdomen was neg for stone in Common Bile duct Reexam: Pain improved, Nausea subsided. Pt refused more pain meds at this time, requested her home meds to be given. 9.37 pm Consultation: Dr. He Hospitalist, [facility]: CT abd/pelvis with PO and IV contrast, then call back. Tx plan was discussed with Pt, Pt agreed for an abd. CT after it was requested by Dr. He. Pt was requesting pain meds for the trip to [place] by EMS, agreed for Morphine to be given, which helped her in the past. 11.[address] Griffin. Hospitalist, [facility]: Accepted the patient for transfer admission and further care Plan: Transfer to [facility] by EMS Last Recorded V/S: Last Vital Signs Temp 36.8 C 07/13/18 23:15 Pulse 70 07/14/18 00:45 Resp 18 07/14/18 00:45 BP 134/99 H 07/14/18 00:45 Pulse Ox 97 07/14/18 00:45 - Orders/Labs/Meds Orders: Active Orders 24 hr Category Date Time Status EKG Documentation Completion [RC] ASDIRECTED Care 07/13/18 20:34 Active Abdomen Pelvis w Cont [CT] Stat Exams 07/13/18 22:12 Taken EKG 12 Lead [EK] Routine Ther 07/13/18 20:34 Ordered Labs: Laboratory Tests 07/13/18 07/13/18 07/13/18 Range/Units 20:05 20:05 20:05 WBC 11.5 (4.5-12.0) X10-3/uL RBC 5.31 H (3.23-5.20) x10(6)uL Hgb 16.6 H (11.5-15.5) g/dL Hct 47.6 (30.0-51.3) % MCV 89.7 (80-96) fL MCH 31.2 (27.7-33.6) pg MCHC 34.8 (32.2-35.4) g/dL RDW 11.9 (11.5-15.5) % Plt Count 217 (125-369) X10(3)uL MPV 9.2 (7.4-10.4) fL Neut % (Auto) 76.0 (46-82) % Lymph % (Auto) 17.8 (13-37) % [place] % (Auto) 5.1 (4-12) % Eos % (Auto) 1 (1.0-5.0) % Baso % (Auto) 0 (0-2) % Neut # (Auto) 8.7 H (1.6-8.3) # Lymph # (Auto) 2.1 (0.6-5.0) # [place] # (Auto) 0.6 (0.0-1.3) # Eos # (Auto) 0.1 (0.0-0.8) # Baso # (Auto) 0.0 (0.0-0.2) # Sodium (135-145) mmol/L Potassium (3.5-5.3) mmol/L Chloride (100-110) mmol/L Carbon Dioxide (21-32) mmol/L BUN (7-18) mg/dL Creatinine (0.55-1.02) mg/dL Est Cr Clr Drug Dosing Estimated GFR (MDRD) (>60) BUN/Creatinine Ratio (9-20) Glucose (80-116) mg/dL Lactic Acid (0.4-2.2) mmol/L Calcium (8.6-10.2) mg/dL Magnesium (1.8-2.5) mg/dL Total Bilirubin 0.9 (0.1-1.3) mg/dL Direct Bilirubin 0.63 H (0.10-0.20) mg/dL AST 662 H* D (5-25) IU/L ALT 365 H* D (12-36) U/L Alkaline Phosphatase 116 H (56-112) IU/L Troponin I < 0.017 L (<0.017-0.056) ng/mL Total Protein 7.3 (6.0-8.0) g/dL Albumin 4.1 (3.5-5.2) g/dL Amylase 53 (25-115) U/L Urine Color (YELLOW) Urine Appearance (CLEAR) Urine pH (5.0-6.5) Ur Specific [place] (1.010-1.025) Urine Protein (NEGATIVE) mg/dL Urine Glucose (UA) (NEGATIVE) mg/dL Urine Ketones (NEGATIVE) mg/dL Urine Occult Blood (NEGATIVE) Urine Nitrite (NEGATIVE) Urine Bilirubin (NEGATIVE) Urine Urobilinogen (NEGATIVE) mg/dL Ur Leukocyte Esterase (NEGATIVE) Urine RBC (0) Urine WBC (0) Ur Squamous Epith Cells (NS,R,O) Urine Bacteria (NS) 07/13/18 07/13/18 07/13/18 Range/Units 20:05 20:05 20:05 WBC (4.5-12.0) X10-3/uL RBC (3.23-5.20) x10(6)uL Hgb (11.5-15.5) g/dL Hct (30.0-51.3) % MCV (80-96) fL MCH (27.7-33.6) pg MCHC (32.2-35.4) g/dL RDW (11.5-15.5) % Plt Count (125-369) X10(3)uL MPV (7.4-10.4) fL Neut % (Auto) (46-82) % Lymph % (Auto) (13-37) % [place] % (Auto) (4-12) % Eos % (Auto) (1.0-5.0) % Baso % (Auto) (0-2) % Neut # (Auto) (1.6-8.3) # Lymph # (Auto) (0.6-5.0) # [place] # (Auto) (0.0-1.3) # Eos # (Auto) (0.0-0.8) # Baso # (Auto) (0.0-0.2) # Sodium 139 (135-145) mmol/L Potassium 3.9 (3.5-5.3) mmol/L Chloride 101 (100-110) mmol/L Carbon Dioxide 25 (21-32) mmol/L BUN 11 (7-18) mg/dL Creatinine 0.9 (0.55-1.02) mg/dL Est Cr Clr Drug Dosing TNP Estimated GFR (MDRD) > 60 (>60) BUN/Creatinine Ratio 12.2 (9-20) Glucose 127 H (80-116) mg/dL Lactic Acid 2.2 (0.4-2.2) mmol/L Calcium 8.9 (8.6-10.2) mg/dL Magnesium 2.2 (1.8-2.5) mg/dL Total Bilirubin (0.1-1.3) mg/dL Direct Bilirubin (0.10-0.20) mg/dL AST (5-25) IU/L ALT (12-36) U/L Alkaline Phosphatase (56-112) IU/L Troponin I (<0.017-0.056) ng/mL Total Protein (6.0-8.0) g/dL Albumin (3.5-5.2) g/dL Amylase (25-115) U/L Urine Color (YELLOW) Urine Appearance (CLEAR) Urine pH (5.0-6.5) Ur Specific [place] (1.010-1.025) Urine Protein (NEGATIVE) mg/dL Urine Glucose (UA) (NEGATIVE) mg/dL Urine Ketones (NEGATIVE) mg/dL Urine Occult Blood (NEGATIVE) Urine Nitrite (NEGATIVE) Urine Bilirubin (NEGATIVE) Urine Urobilinogen (NEGATIVE) mg/dL Ur Leukocyte Esterase (NEGATIVE) Urine RBC (0) Urine WBC (0) Ur Squamous Epith Cells (NS,R,O) Urine Bacteria (NS) 07/13/18 Range/Units 21:30 WBC (4.5-12.0) X10-3/uL RBC (3.23-5.20) x10(6)uL Hgb (11.5-15.5) g/dL Hct (30.0-51.3) % MCV (80-96) fL MCH (27.7-33.6) pg MCHC (32.2-35.4) g/dL RDW (11.5-15.5) % Plt Count (125-369) X10(3)uL MPV (7.4-10.4) fL Neut % (Auto) (46-82) % Lymph % (Auto) (13-37) % [place] % (Auto) (4-12) % Eos % (Auto) (1.0-5.0) % Baso % (Auto) (0-2) % Neut # (Auto) (1.6-8.3) # Lymph # (Auto) (0.6-5.0) # [place] # (Auto) (0.0-1.3) # Eos # (Auto) (0.0-0.8) # Baso # (Auto) (0.0-0.2) # Sodium (135-145) mmol/L Potassium (3.5-5.3) mmol/L Chloride (100-110) mmol/L Carbon Dioxide (21-32) mmol/L BUN (7-18) mg/dL Creatinine (0.55-1.02) mg/dL Est Cr Clr Drug Dosing Estimated GFR (MDRD) (>60) BUN/Creatinine Ratio (9-20) Glucose (80-116) mg/dL Lactic Acid (0.4-2.2) mmol/L Calcium (8.6-10.2) mg/dL Magnesium (1.8-2.5) mg/dL Total Bilirubin (0.1-1.3) mg/dL Direct Bilirubin (0.10-0.20) mg/dL AST (5-25) IU/L ALT (12-36) U/L Alkaline Phosphatase (56-112) IU/L Troponin I (<0.017-0.056) ng/mL Total Protein (6.0-8.0) g/dL Albumin (3.5-5.2) g/dL Amylase (25-115) U/L Urine Color Yellow (YELLOW) Urine Appearance Clear (CLEAR) Urine pH 9.0 H (5.0-6.5) Ur Specific [place] 1.015 (1.010-1.025) Urine Protein Negative (NEGATIVE) mg/dL Urine Glucose (UA) Normal (NEGATIVE) mg/dL Urine Ketones Negative (NEGATIVE) mg/dL Urine Occult Blood Negative (NEGATIVE) Urine Nitrite Negative (NEGATIVE) Urine Bilirubin Negative (NEGATIVE) Urine Urobilinogen Normal (NEGATIVE) mg/dL Ur Leukocyte Esterase Negative (NEGATIVE) Urine RBC 0-5 (0) Urine WBC 0-5 (0) Ur Squamous Epith Cells Few H (NS,R,O) Urine Bacteria Few H (NS) Meds: Medications Discontinued Medications Generic Name Dose Route Start Last Admin Trade Name Gucciq PRN Reason Stop Dose Admin Hydromorphone HCl 1 mg 07/13/18 22:12 07/13/18 22:16 Dilaudid IVPUSH 07/13/18 22:13 1 mg ONETIME ONE Administration Sodium Chloride 1,000 mls @ 999 mls/hr 07/13/18 19:57 07/13/18 20:25 Normal Saline IV 07/13/18 20:57 999 mls/hr .BOLUS ONE Administration Sodium Chloride 1,000 mls @ 999 mls/hr 07/13/18 21:35 07/13/18 21:35 Normal Saline IV 07/13/18 22:35 999 mls/hr .BOLUS ONE Administration Sodium Chloride 1,000 mls @ 125 mls/hr 07/13/18 23:00 07/13/18 23:00 Normal Saline IV 125 mls/hr ASDIRECTED BILL Administration Iopamidol 100 ml 07/13/18 22:14 07/13/18 22:43 Isovue-370 (76%) IV 07/13/18 22:15 100 ml . DIRECTED ONE Administration Ketorolac Tromethamine 30 mg 07/13/18 20:00 07/13/18 20:25 Toradol IVPUSH 07/13/18 20:01 30 mg ONETIME ONE Administration Metoprolol Succinate 12.5 mg 07/14/18 00:23 07/14/18 00:44 Toprol Xl PO 07/14/18 00:24 12.5 mg ONETIME ONE Administration Morphine Sulfate 2 mg 07/14/18 00:49 07/14/18 00:52 Morphine IVPUSH 07/14/18 00:50 2 mg ONETIME ONE Administration Ondansetron HCl 8 mg 07/13/18 19:57 07/13/18 20:28 Zofran IVPUSH 07/13/18 19:58 8 mg ONETIME ONE Administration Pantoprazole Sodium 40 mg 07/13/18 19:57 07/13/18 20:34 Protonix Iv IVPUSH 07/13/18 19:58 40 mg ONETIME ONE Administration Ranitidine HCl 150 mg 07/14/18 00:14 07/14/18 00:42 Zantac PO 07/14/18 00:15 150 mg ONETIME STA Administration Sucralfate 1 gm 07/14/18 00:19 07/14/18 00:43 Carafate PO 07/14/18 00:20 1 gm ONETIME ONE Administration Departure - Departure Time of Disposition: 23:00 Disposition: DC/Tfer to Acute Hospital 02 Condition: Fair Clinical Impression: Abdominal pain Qualifiers: Abdominal location: right upper quadrant Qualified Code(s): R10.11 - Right upper quadrant pain - Discharge Information Referrals: Faheem Woodard MD [Primary Care Provider] - Forms: ED Department Discharge - My Orders Last 24 Hours: My Active Orders 07/13/18 20:34 EKG Documentation Completion [RC] ASDIRECTED EKG 12 Lead [EK] Routine 07/13/18 22:12 Abdomen Pelvis w Cont [CT] Stat - Assessment/Plan Last 24 Hours: My Active Orders 07/13/18 20:34 EKG Documentation Completion [RC] ASDIRECTED EKG 12 Lead [EK] Routine 07/13/18 22:12 Abdomen Pelvis w Cont [CT] Stat
[2018-07-13] MEDS ORDERED: HYDROmorphone 2 MG/ML SDV IVPUSH ONE (22:12)
[2018-07-13] MEDS ORDERED: Iopamidol 755 Mg/ML 100 ML Bottle IV ONE (22:14)
[2018-07-13] MEDS ORDERED: Sodium Chloride 0.9% 1,000 ML IV SCH (23:00)
[2018-07-14] MEDS ORDERED: Ranitidine 15 MG/ML Syrup ML (473 ML Bottle) PO STA (00:14)
[2018-07-14] MEDS ORDERED: Sucralfate 1 GM Tab PO ONE (00:19)
[2018-07-14] MEDS ORDERED: Metoprolol Succinate 25 MG Tab.ER PO ONE (00:23)
[2018-07-14 00:45] VITALS: BP 134/99
[2018-07-14] MEDS ORDERED: Morphine 2 MG/ML Syringe IVPUSH ONE (00:49)
== END 2018-07-14 01:15 ==
LOC: FB.ED 19:46
DX: K83.1 Obstruction of bile duct (principal); R10.11 Right upper quadrant pain; R79.89 Other specified abnormal findings of blood chemistry; Z90.49 Acquired absence of other specified parts of digestive tract; F41.9 Anxiety disorder, unspecified; Z79.899 Other long term (current) drug therapy
CPT/HCPCS: 36415; 74177; 80048; 80076; 81001; 82150; 83605; 83735; 84484; 85025; 93005; 96361; 96374; 96375; 99285; A9270; C9113; J1170; J1885; J2270; J2405; J7030; Q9967

== ENCOUNTER 2018-08-21 14:40 | Emergency (ER) | payer OTHER ==
[2018-08-21] MEDS ORDERED: Pantoprazole 40 MG Vial IVPUSH ONE (14:51)
[2018-08-21] MEDS ORDERED: Labetalol 20 MG/4 ML Syringe IVPUSH ONE (14:52)
--- NOTE | 2018-08-21 14:53 | EDM.PDOC ---
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 Pt slipped on ICE last night and fell onto her posterior Head/ Neck. No LOC. pt felt dizzy, which is worse today. She has pain at her posterior alla and neck as well. 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 Pt is ambulating fine, Dizziness gets worse when she pediatric speech language pathologist her head to either side. No N/V/D no SOP or chest pain, no other acute medical issue. BP 108/72 RR 17 Pulse ox 100% on RA HR 55 Temp 36.4 Onset Date: 08/20/18 Onset Time: 20:00 Duration: Day(s):, Getting Worse, Intermittent Location: Reports: Head, Neck Quality: Reports: Ache, Dull Severity: Moderate Improves with: Reports: Rest Worsens with: Reports: Movement Context: Reports: Trauma (pt fell onto her back of her head. ) Associated Symptoms: Reports: Other (Dizziness neck pain. Pain at her occiput) neck/head Pain Score (Numeric/FACES): 4 - Related Data Allergies Allergy/AdvReac Type Severity Reaction Status Date / Time No Known Allergies Allergy Verified 08/21/18 14:59 Home Meds: Home Meds Cholecalciferol (Vitamin D3) [Vitamin D3] 1,000 unit PO DAILY 02/15/13 [History] Gluc Brock Dipo Ch/Efra Brock/C/Attila [Glucosamine Chondroitin Caplet] 1 each PO BID [History] Krill Oil 500 mg PO DAILY 02/15/13 [History] Lysine [l-Lysine] 500 mg PO DAILY 02/15/13 [History] Multivitamin [Multi-Vitamin Daily] 0.5 tab PO BID 02/15/13 [History] Ranitidine HCl [Ranitidine] 150 mg PO BID 02/15/13 [History] Vitamin B Complex 1 each PO DAILY 02/15/13 [History] Metoprolol Succinate [Toprol XL] 12.5 mg PO BID 10/30/15 [History] Calcium Polycarbophil [Fibercon] 1,250 mg PO BID PRN 03/24/18 [History] Triamcinolone Acetonide [Kenalog 0.1% Crm] 1 applic TOP BID PRN 03/24/18 [ History] Ubidecarenone [Co Q-10] 1 cap PO DAILY 07/07/18 [History] Pantoprazole Sodium 40 mg PO DAILY #30 tablet. 07/08/18 [Rx] Sucralfate [Carafate] 1 gm PO QIDACANDBED #120 tablet 07/08/18 [Rx] Past Medical History HEENT History: Reports: Impaired Vision Cardiovascular History: Reports: Aneurysm, High Cholesterol, SOB on Exertion, Other (See Below) Other Cardiovascular History: BICUSPID AORTIC VALVE; IDOPATHIC MEDIAL AORTOPATHY AND ARTERIOPATHY; PALPITATION Other Respiratory History: DYSPNEA WITH EXERTION. DENIES USE OF INHALER. Gastrointestinal History: Reports: Cholelithiasis, Gastritis, Other (See Below) Other Gastrointestinal History: RECURRENT BILLIARY COLIC Genitourinary History: Reports: None CAN RUNNER History: Reports: Other CAN RUNNER History: II PAR II Musculoskeletal History: Reports: Fracture Other Musculoskeletal History: PAIN IN LIMB, hx fx R femur Neurological History: Reports: Migraines Psychiatric History: Reports: Anxiety Endocrine/Metabolic History: Reports: Obesity/BMI 30+ Hematologic History: Reports: None Immunologic History: Reports: None Oncologic (Cancer) History: Reports: Cervix Dermatologic History: Reports: Eczema - Infectious Disease History Infectious Disease History: Reports: Chicken Pox - Past Surgical History Head Surgeries/Procedures: Reports: None HEENT Surgical History: Reports: Adenoidectomy, Oral Surgery Cardiovascular Surgical History: Reports: None GI Surgical History: Reports: Cholecystectomy, Colonoscopy, EGD Female Surgical History: Reports: Section, Hysterectomy Other Female Surgeries/Procedures: CS x 2 Endocrine Surgical History: Reports: None Neurological Surgical History: Reports: None Musculoskeletal Surgical History: Reports: Other (See Below) Other Musculoskeletal Surgeries/Procedures:: RIGHT FEMUR FRACTURE SURGERY Social & Family History - Family History Family Medical History: Noncontributory - Caffeine Use Caffeine Use: Reports: Coffee ED ROS GENERAL - Review of Systems Review Of Systems: See Below Constitutional: Reports: No Symptoms HEENT: Reports: No Symptoms Respiratory: Reports: No Symptoms Cardiovascular: Reports: No Symptoms Endocrine: Reports: No Symptoms GI/Abdominal: Reports: No Symptoms : Reports: No Symptoms Musculoskeletal: Reports: Neck Pain Skin: Reports: No Symptoms Neurological: Reports: No Symptoms Psychiatric: Reports: No Symptoms Hematologic/Lymphatic: Reports: No Symptoms Immunologic: Reports: No Symptoms ED EXAM, NEURO - Physical Exam Exam: See Below Exam Limited By: No Limitations General Appearance: Alert, WD/WN, Mild Distress Eye Exam: Bilateral Eye: Nystagmus (bilaterally ) Ears: Normal External Exam Nose: Normal Inspection Throat/Mouth: Normal Inspection Head Exam: Other (neck and occipital tenderness) Neck: Normal Inspection, Tender Lateral Respiratory/Chest: No Respiratory Distress, Lungs Clear Cardiovascular: Normal Peripheral Pulses, Regular Rate, Rhythm GI/Abdominal: Normal Bowel Sounds, Soft (Female) Exam: Deferred Rectal (Female) Exam: Deferred Neurological: Alert, Normal Mood/Affect, Normal Dorsiflexion, CN II-XII Intact, Normal Gait, Oriented x 3 DTR: 1+: Bicep (L) Back Exam: Normal Inspection, Full Range of Motion Extremities: Normal Inspection, Normal Range of Motion, Non-Tender, No Pedal Edema, Normal Capillary Refill Psychiatric: Normal Affect, Normal Mood Skin Exam: Warm, Dry, Intact, Normal Color, No Rash Course - Vital Signs Text/Narrative:: 53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 Pt slipped on ICE last night and fell onto her posterior Head/ Neck. No LOC. pt felt dizzy, which is worse today. She has pain at her posterior alla and neck as well. 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 Pt is ambulating fine, Dizziness gets worse when she pediatric speech language pathologist her head to either side. No N/V/D no SOP or chest pain, no other acute medical issue. BP 108/72 RR 17 Pulse ox 100% on RA HR 55 Temp 36.4 PE: WNWD W F with dizziness and post alla/neck pain with bilateral nystagmus Imaging: CT head and Neck: NAD Impression: Fall, Tension H/A, vertigo Tx: Antivert, ICE bag Reexam: pt was doing better, ablating fine, Dizziness Plan: D/C with instructions Last Recorded V/S: Last Vital Signs Temp 36.3 C 08/21/18 14:55 Pulse 55 L 08/21/18 14:55 Resp 17 08/21/18 14:55 BP 108/72 08/21/18 14:55 Pulse Ox 100 08/21/18 14:55 - Orders/Labs/Meds Orders: Active Orders 24 hr Category Date Time Status Cooling Warming Measures [RC] ASDIRECTED Care 08/21/18 15:59 Active Cervical Spine wo Cont [CT] Stat Exams 08/21/18 14:54 Taken Head wo Cont [CT] Stat Exams 08/21/18 14:54 Taken Ice Bag [Ice Therapy] [OM.PC] Routine Oth 08/21/18 15:59 Ordered Meds: Medications Discontinued Medications Generic Name Dose Route Start Last Admin Trade Name Freq PRN Reason Stop Dose Admin Sodium Chloride 1,000 mls @ 125 mls/hr 08/21/18 15:00 Normal Saline IV ASDIRECTED BILL Labetalol HCl 10 mg 08/21/18 14:52 08/21/18 16:06 Normodyne IVPUSH 08/21/18 14:53 Not Given ONETIME ONE Protocol Meclizine HCl 25 mg 08/21/18 15:59 08/21/18 16:06 Antivert PO 08/21/18 16:00 25 mg ONETIME ONE Administration Pantoprazole Sodium 40 mg 08/21/18 14:51 08/21/18 16:06 Protonix Iv IVPUSH 08/21/18 14:52 Not Given ONETIME ONE Departure - Departure Time of Disposition: 16:47 Disposition: Home, Self-Care 01 Condition: Good Clinical Impression: Vertigo, Occipital headache, Neck ache Fall Qualifiers: Encounter type: initial encounter Qualified Code(s): W19.XXXA - Unspecified fall, initial encounter - Discharge Information Instructions: Vertigo Referrals: Viktoriya Buck NP [Primary Care Provider] - Forms: ED Department Discharge Additional Instructions: Please apply ice to post alla/neck, Motrin for pain, Antivert for Dizziness. Please f/u with your PMD, come back if your symptoms get worse acutely. - My Orders Last 24 Hours: My Active Orders 08/21/18 14:54 Cervical Spine wo Cont [CT] Stat Head wo Cont [CT] Stat 08/21/18 15:59 Cooling Warming Measures [RC] ASDIRECTED Ice Bag [Ice Therapy] [OM.PC] Routine - Assessment/Plan Last 24 Hours: My Active Orders 08/21/18 14:54 Cervical Spine wo Cont [CT] Stat Head wo Cont [CT] Stat 08/21/18 15:59 Cooling Warming Measures [RC] ASDIRECTED Ice Bag [Ice Therapy] [OM.PC] Routine
[2018-08-21 15:00] VITALS: BP 108/72
[2018-08-21] MEDS ORDERED: Sodium Chloride 0.9% 1,000 ML IV SCH (15:00)
[2018-08-21] MEDS ORDERED: Meclizine 25 MG Tab PO ONE (15:59)
== END 2018-08-21 17:07 | disposition home or self-care (01) ==
LOC: FB.ED 14:40
DX: G44.209 Tension-type headache, unspecified, not intractable (principal); M54.2 Cervicalgia; R42 Dizziness and giddiness; Z79.899 Other long term (current) drug therapy; E78.00 Pure hypercholesterolemia, unspecified; W00.0XXA Fall on same level due to ice and snow, initial encounter; F41.9 Anxiety disorder, unspecified
CPT/HCPCS: 70450; 72125; 99284; A9270

== ENCOUNTER 2020-04-19 19:29 | Emergency (ER) | payer OTHER ==
--- NOTE | 2020-04-19 20:00 | EDM.PDOC ---
ED HPI GENERAL MEDICAL PROBLEM - General Stated Complaint: CHEST PAIN Time Seen by Provider: 04/19/20 19:55 Source of Information: Reports: Patient History Limitations: Reports: No Limitations - History of Present Illness INITIAL COMMENTS - FREE TEXT/NARRATIVE: pr comes in with concerns for chest pain this happened about 1 hr ago while going up the stairs and lasted about 10 minutes, she felt little light headed and diaphoretic, described sharp pain at left chest radiating to left shoulder ad back, reports Hx odf similar chest pains with activities since she had Covid 19 on mar 06, denies any leg swelling or pain, indicate Hx of anxiety, and hx of aortic aneurysm , measuring 4.3 about 3 years ago. on arival pt feels fine, has EKG without changes and vitals are stable. L anterior chest & shoulder Pain Score (Numeric/FACES): 2 - Related Data Allergies Allergy/AdvReac Type Severity Reaction Status Date / Time No Known Allergies Allergy Verified 04/19/20 20:09 Home Meds: Home Meds Cholecalciferol (Vitamin D3) [Vitamin D3] 1,000 unit PO DAILY 02/15/13 [History] Glucosamine/Chondroitin/C/Attila [Glucosamine Chondroitin Caplet] 1 each PO BID 02/15/13 [History] Krill Oil 500 mg PO DAILY 02/15/13 [History] Lysine [l-Lysine] 500 mg PO DAILY 02/15/13 [History] Multivitamin [Multi-Vitamin Daily] 0.5 tab PO BID 02/15/13 [History] Ranitidine HCl [Ranitidine] 150 mg PO BID 02/15/13 [History] Vitamin B Complex 1 each PO DAILY 02/15/13 [History] Metoprolol Succinate [Toprol XL] 12.5 mg PO BID 10/30/15 [History] Triamcinolone Acetonide [Kenalog 0.1% Crm] 1 applic TOP BID PRN 03/24/18 [History] calcium polycarbophiL [Fibercon] 1,250 mg PO BID PRN 03/24/18 [History] Ubidecarenone [Co Q-10] 1 cap PO DAILY 07/07/18 [History] Pantoprazole Sodium 40 mg PO DAILY #30 tablet. 07/08/18 [Rx] Sucralfate [Carafate] 1 gm PO QIDACANDBED #120 tablet 07/08/18 [Rx] Past Medical History HEENT History: Reports: Impaired Vision Cardiovascular History: Reports: Aneurysm, High Cholesterol, SOB on Exertion, Other (See Below) Other Cardiovascular History: BICUSPID AORTIC VALVE; IDOPATHIC MEDIAL AORTOPATHY AND ARTERIOPATHY; PALPITATION Other Respiratory History: DYSPNEA WITH EXERTION. DENIES USE OF INHALER. 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 SUPPORT OPERATIONS OPERATOR History: II PAR II Musculoskeletal History: Reports: Fracture Other Musculoskeletal History: PAIN IN LIMB, hx fx R femur Neurological History: Reports: Migraines Psychiatric History: Reports: Anxiety Endocrine/Metabolic History: Reports: Obesity/BMI 30+ Hematologic History: Reports: None Immunologic History: Reports: None Oncologic (Cancer) History: Reports: Cervix Dermatologic History: Reports: Eczema - Infectious Disease History Infectious Disease History: Reports: Chicken Pox - Past Surgical History Head Surgeries/Procedures: Reports: None HEENT Surgical History: Reports: Adenoidectomy, Oral Surgery Cardiovascular Surgical History: Reports: None GI Surgical History: Reports: Cholecystectomy, Colonoscopy, EGD Female Surgical History: Reports: Section, Hysterectomy Other Female Surgeries/Procedures: CS x 2 Endocrine Surgical History: Reports: None Neurological Surgical History: Reports: None Musculoskeletal Surgical History: Reports: Other (See Below) Other Musculoskeletal Surgeries/Procedures:: RIGHT FEMUR FRACTURE SURGERY Social & Family History - Family History Family Medical History: No Pertinent Family History - Caffeine Use Caffeine Use: Reports: Coffee ED ROS GENERAL - Review of Systems Review Of Systems: See Below Constitutional: Reports: No Symptoms HEENT: Reports: No Symptoms Respiratory: Reports: No Symptoms, Shortness of Breath. Denies: Cough Cardiovascular: Reports: Chest Pain Endocrine: Reports: No Symptoms GI/Abdominal: Reports: No Symptoms Musculoskeletal: Reports: No Symptoms Skin: Reports: No Symptoms Neurological: Reports: No Symptoms ED EXAM, GENERAL - Physical Exam Exam: See Below Exam Limited By: No Limitations General Appearance: Alert, No Apparent Distress Nose: Normal Inspection Throat/Mouth: Normal Inspection, Normal Oropharynx Head: Atraumatic Neck: Normal Inspection Respiratory/Chest: No Respiratory Distress, Lungs Clear, Normal Breath Sounds Cardiovascular: Normal Peripheral Pulses, Regular Rate, Rhythm, No Edema, No Murmur GI/Abdominal: Normal Bowel Sounds, Soft, Non-Tender Extremities: Normal Inspection, Normal Range of Motion Neurological: Alert, Oriented, CN II-XII Intact Course - Vital Signs Text/Narrative:: Ekg shows no acute changes , labs unremarkable. pt has indicated while awaiting for labs of chest discomfort/ repeat EKG shows NSR and no acute changes, her pain resolved after ativan. pt has been having this recurrent pain now for about 6 weeks, it sound anxiety related however with it being hoccuring with activity too i will be also concerned for angina. there are no signs of acute cardiac issues tonight, and pt is medically stable to follow on this issue with PCP and be scheduled for a stress test also for echo to assess her aortic aneurysm. Last Recorded V/S: Last Vital Signs Temp 36.8 C 04/19/20 19:29 Pulse 78 04/19/20 19:29 Resp 18 04/19/20 19:29 BP 173/93 H 04/19/20 19:29 Pulse Ox 100 04/19/20 19:29 - Orders/Labs/Meds Orders: Active Orders 24 hr Category Date Time Status CXR [Chest 1V Frontal] [CR] Stat Exams 04/19/20 20:00 Taken Labs: Laboratory Tests 04/19/20 04/19/20 04/19/20 Range/Units 19:39 19:39 19:39 WBC 9.5 (3.0-10.3) x10-3/uL RBC 4.77 (3.60-5.20) x10(6)uL Hgb 14.4 (11.4-15.5) g/dL Hct 42.1 (34.2-48.2) % MCV 88.3 (76.7-100.5) fL MCH 30.1 (23.9-33.9) pg MCHC 34.1 (31.9-34.8) g/dL RDW 13.1 (12.3-16.5) % Plt Count 205 (151-488) x10(3)uL MPV 9.0 (7.1-12.4) fL Neut % (Auto) 56.3 (30.8-76.2) % Lymph % (Auto) 36.2 (18.4-52.1) % [place] % (Auto) 4.5 (4.4-15.7) % Eos % (Auto) 2.2 (0.6-8.1) % Baso % (Auto) 0.8 (0.2-1.5) % Neut # (Auto) 5.3 (1.5-6.3) x10-3/uL Lymph # (Auto) 3.4 (1.0-4.4) x10-3/uL [place] # (Auto) 0.4 (0.3-1.0) x10-3/uL Eos # (Auto) 0.2 (0.0-0.8) x10-3/uL Baso # (Auto) 0.1 (0.0-0.1) x10-3/uL D-Dimer, Quantitative 0.58 (0.0-0.59) mg/LFEU Sodium 140 (135-145) mmol/L Potassium 3.6 (3.5-5.3) mmol/L Chloride 101 (100-110) mmol/L Carbon Dioxide 29 (21-32) mmol/L BUN 17 (7-18) mg/dL Creatinine 1.0 (0.55-1.02) mg/dL Est Cr Clr Drug Dosing TNP Estimated GFR (MDRD) 58 L (>60) BUN/Creatinine Ratio 17.0 (9-20) Glucose 133 H (80-116) mg/dL Calcium 9.1 (8.6-10.2) mg/dL Total Bilirubin 0.4 (0.1-1.3) mg/dL AST 11 D (5-25) IU/L ALT 32 D (12-36) U/L Alkaline Phosphatase 79 (56-112) IU/L Troponin I (4.0-60.3) pg/mL Total Protein 7.7 (6.0-8.0) g/dL Albumin 4.0 (3.5-5.2) g/dL Globulin 3.7 g/dL Albumin/Globulin Ratio 1.1 04/19/20 Range/Units 19:39 WBC (3.0-10.3) x10-3/uL RBC (3.60-5.20) x10(6)uL Hgb (11.4-15.5) g/dL Hct (34.2-48.2) % MCV (76.7-100.5) fL MCH (23.9-33.9) pg MCHC (31.9-34.8) g/dL RDW (12.3-16.5) % Plt Count (151-488) x10(3)uL MPV (7.1-12.4) fL Neut % (Auto) (30.8-76.2) % Lymph % (Auto) (18.4-52.1) % [place] % (Auto) (4.4-15.7) % Eos % (Auto) (0.6-8.1) % Baso % (Auto) (0.2-1.5) % Neut # (Auto) (1.5-6.3) x10-3/uL Lymph # (Auto) (1.0-4.4) x10-3/uL [place] # (Auto) (0.3-1.0) x10-3/uL Eos # (Auto) (0.0-0.8) x10-3/uL Baso # (Auto) (0.0-0.1) x10-3/uL D-Dimer, Quantitative (0.0-0.59) mg/LFEU Sodium (135-145) mmol/L Potassium (3.5-5.3) mmol/L Chloride (100-110) mmol/L Carbon Dioxide (21-32) mmol/L BUN (7-18) mg/dL Creatinine (0.55-1.02) mg/dL Est Cr Clr Drug Dosing Estimated GFR (MDRD) (>60) BUN/Creatinine Ratio (9-20) Glucose (80-116) mg/dL Calcium (8.6-10.2) mg/dL Total Bilirubin (0.1-1.3) mg/dL AST (5-25) IU/L ALT (12-36) U/L Alkaline Phosphatase (56-112) IU/L Troponin I 5.1 (4.0-60.3) pg/mL Total Protein (6.0-8.0) g/dL Albumin (3.5-5.2) g/dL Globulin g/dL Albumin/Globulin Ratio Meds: Medications Discontinued Medications Generic Name Dose Route Start Last Admin Trade Name Freq PRN Reason Stop Dose Admin Aspirin 324 mg 04/19/20 20:21 04/19/20 20:25 Aspirin PO 04/19/20 20:22 324 mg ONETIME ONE Administration Lorazepam 0.5 mg 04/19/20 20:20 04/19/20 20:27 Ativan PO 04/19/20 20:21 Not Given ONETIME ONE Departure - Departure Time of Disposition: 20:50 Disposition: Home, Self-Care 01 Clinical Impression: Chest pain - Discharge Information Referrals: Faheem Woodard MD [Primary Care Provider] - Sepsis Event Note (ED) - Focused Exam Vital Signs: Vital Signs Temp Pulse Resp BP Pulse Ox 04/19/20 19:29 36.8 C 78 18 173/93 H 100 - My Orders Last 24 Hours: My Active Orders 04/19/20 20:00 CXR [Chest 1V Frontal] [CR] Stat - Assessment/Plan Last 24 Hours: My Active Orders 04/19/20 20:00 CXR [Chest 1V Frontal] [CR] Stat
[2020-04-19 20:20] VITALS: BP 173/93; PULSE 78
[2020-04-19] MEDS ORDERED: LORazepam 0.5 MG Tab PO ONE (20:20)
[2020-04-19] MEDS ORDERED: Aspirin 81 MG Tab.Chew PO ONE (20:21)
--- NOTE | 2020-04-22 10:49 | CR ---
INDICATION: Chest pain. CHEST, ONE VIEW: AP upright portable view of the chest 04/19/20 was compared with 10/27/16 and 02/15/13. The heart remains within normal limits in size and shape. Mediastinum was essentially unremarkable. Overlying EKG leads are noted. Exogenous obesity is noted. Pulmonary markings are similar to the previous examination without a definite active infiltrate or effusion. IMPRESSION: No acute process. Fairly stable appearance of the chest allowing for portable AP positioning. MTDD
== END 2020-04-19 22:00 | disposition home or self-care (01) ==
LOC: FB.ED 19:29
DX: R07.9 Chest pain, unspecified (principal); E66.9 Obesity, unspecified; Z68.38 Body mass index [BMI] 38.0-38.9, adult; Z79.899 Other long term (current) drug therapy
CPT/HCPCS: 36415; 71045; 80053; 84484; 85025; 85379; 93005; 99283; 99285-25; A9270-GY

== ENCOUNTER 2022-06-08 18:13 | Emergency (ER) | payer BC, OTHER ==
[2022-06-08] MEDS: Sodium Chloride 0.9% 10 ML Syringe FLUSH PRN ×2 (18:25→21:48)
[2022-06-08 18:47] LABS: ESTIMATED GFR 76 mL/min (>60)
[2022-06-08] MEDS ORDERED: Aspirin 81 MG Tab.Chew PO ONE (21:15)
[2022-06-08] MEDS ORDERED: Heparin Sodium 5,000 Units/ML Vial IVPUSH ONE (21:41)
[2022-06-08] MEDS ORDERED: Heparin Sodium/0.45% NaCl 500 ML IV SCH (21:45)
[2022-06-08] MEDS ORDERED: Sodium Chloride 0.9% 500 ML IV ONE (22:52)
[2022-06-08] MEDS ORDERED: Nitroglycerin 0.4 MG Tab.SL SL PRN (22:52)
[2022-06-08] MEDS ORDERED: Acetaminophen 500 MG Tab PO ONE (23:14)
[2022-06-08] MEDS ORDERED: Nitroglycerin/D5W 25 MG/250 ML BOTTLE IV SCH (23:15)
[2022-06-09 02:06] VITALS: BP 106/74; PULSE 66
== END 2022-06-08 23:58 ==
LOC: FB.ED 18:13
DX: I21.4 Non-ST elevation (NSTEMI) myocardial infarction (principal); I49.9 Cardiac arrhythmia, unspecified; E78.00 Pure hypercholesterolemia, unspecified; E66.9 Obesity, unspecified; Z68.33 Body mass index [BMI] 33.0-33.9, adult; Z20.822 Contact with and (suspected) exposure to COVID-19; Z86.16 Personal history of COVID-19
CPT/HCPCS: 36415; 71045; 80053; 83735; 84443; 84484; 85025; 85379; 93005; 93010; 96365; 96366; 96368; 96376; 99285; 99285-25; A9270-GY; J1644; J3490; J7040; U0002